=== PATIENT | male | born 1965 | race Caucasian/White ===

== ENCOUNTER → 2017-06-11 | Emergency (ER) | payer OTHER ==
[~2017-06-11] VITALS: Ht 175.3 cm; Wt 88.5 kg
[~2017-06-11] MED LIST: PEPCID40 MG PO; PHENERGAN25 MG PO; PROTONIX20 MG; PROTONIX40 MG; ZANTAC150 M3
== END | disposition left against medical advice (07) ==
LOC: ER 20:08
DX: Z53.20 Procedure and treatment not carried out because of patient's decision for unspecified reasons (principal)